=== PATIENT | male | born 1950 | race Two or more races ===

== ENCOUNTER 2023-03-14 12:42 | Emergency (ER) | payer OTHER ==
[~2023-03-14] VITALS: Ht 177.8 cm; Wt 84.0 kg
[2023-03-14 12:54] VITALS: BP 147/90; PULSE 92; RESP 18; TEMP 97.8; O2SAT 99
[2023-03-14] MEDS ORDERED: ONDANSETRON HCL 4MG/2ML INJ IV STA (13:13)
[2023-03-14] MEDS ORDERED: SODIUM CHLORIDE 0.9% 1,000 ML IV ONE (13:15)
== END 2023-03-14 15:46 | disposition left against medical advice (07) ==
LOC: ER 12:42
DX: R42 Dizziness and giddiness (principal); R53.1 Weakness; R11.0 Nausea; I25.10 Atherosclerotic heart disease of native coronary artery without angina pectoris; Z98.890 Other specified postprocedural states
CPT/HCPCS: 99283; 93005; J7030